=== PATIENT | male | born 1960 | race Caucasian/White ===

== ENCOUNTER 2022-12-21 17:46 | Observation (INO) | payer BC ==
[~2022-12-21] VITALS: Ht 180.3 cm; Wt 68.0 kg
[2022-12-21] MEDS ORDERED: ASPIRIN 81 MG CHEW TAB PO ONE (18:15)
[2022-12-21] MEDS ORDERED: METOPROLOL TARTRATE INJ 1 MG/ML VIAL IV ONE (18:15)
[2022-12-21] MEDS ORDERED: NITROGLYCERIN 2% OINT 1 GM PKT TOP ONE (18:15)
[2022-12-21 18:22] LABS: BASOPHILS # (AUTO) 0.1 (0.0-0.1); BASOPHILS % 0.7 % (0.0-1.0); HEMATOCRIT 38.4 % (38.2-49.6); LYMPHOCYTES # (AUTO) 1.4 (1.0-3.2); LYMPHOCYTES % 20.1 % (18.0-39.1); MEAN CORPUSCULAR HEMOGLOBIN 33.7 pg (28-32); MEAN CORPUSCULAR HGB CONC 33.9 g/dL (31-35); MEAN CORPUSCULAR VOLUME 99.5 fL (81-99); MONOCYTES # (AUTO) 0.6 (0.2-0.8); MONOCYTES % 8.9 % (4.4-11.3); NEUTROPHILS % 69.9 % (38.7-80.0); PLATELET COUNT 198 x10e3/uL (140-360); RED BLOOD COUNT 3.86 x10e6/uL (4.3-5.7); RED CELL DISTRIBUTION WIDTH 12.5 % (11.7-14.4)
[2022-12-21] MEDS ORDERED: ASPIRIN 81 MG CHEW TAB ONE (18:27)
[2022-12-21] MEDS ORDERED: METOPROLOL TARTRATE INJ 1 MG/ML VIAL ONE (18:27)
[2022-12-21 18:35] LABS: ALBUMIN 4.3 g/dL (3.5-5.0); ALBUMIN/GLOBULIN RATIO 1.5 (0.8-2.0); ANION GAP 17.9 mmol/L (8-16); CALCIUM 8.5 mg/dL (8.4-10.2); CREATININE, SERUM 0.72 mg/dL (0.72-1.25); POTASSIUM 3.9 mmol/L (3.5-5.1)
[2022-12-21] MEDS ORDERED: ONDANSETRON HCL INJ 2MG/ML 2ML 2 MG/ML VIAL IV PRN ×2 (19:00→21:15)
[2022-12-21] MEDS ORDERED: SODIUM CHLORIDE FLUSH 10 ML SYR INJ PRN (19:00)
[2022-12-21] MEDS ORDERED: HYDRALAZINE HCL 20 MG/ML VIAL IV PRN ×2 (19:15→21:15)
[2022-12-21] MEDS: METOPROLOL TARTRATE 25 MG TAB PO SCH (19:40)
[2022-12-21] MEDS ORDERED: METOPROLOL TARTRATE 25 MG TAB ONE (19:44)
[2022-12-21] MEDS ORDERED: HYDRALAZINE HCL 20 MG/ML VIAL ONE (19:44)
[2022-12-21 20:17] VITALS: BP 125/82
[2022-12-21] MEDS ORDERED: CLONIDINE HCL0.1 MG (20:17)
[2022-12-21] MEDS ORDERED: PAROXETINE HCL20 MG (20:17)
[2022-12-21 20:59] VITALS: BP 125/82
[2022-12-21] MEDS: HYDROCODONE/APAP 5MG-325MG TAB PO PRN (21:02)
[2022-12-21] MEDS ORDERED: LIDOCAINE 4% PATCH TP PRN (21:15)
[2022-12-21] MEDS ORDERED: NITROGLYCERIN 0.4 MG SUBL SL PRN (21:15)
[2022-12-21] MEDS ORDERED: MELATONIN 5 MG TABLET PO PRN (21:15)
[2022-12-21] MEDS ORDERED: ALBUTEROL/IPRATROPIUM 3 ML NEB NEB PRN (21:15)
[2022-12-21] MEDS ORDERED: ACETAMINOPHEN 325 MG TAB PO PRN (21:15)
[2022-12-21] MEDS ORDERED: POTASSIUM CHLORIDE 20 MEQ TAB CR PO PRN (21:15)
[2022-12-21] MEDS ORDERED: BENZONATATE 100 MG CAP PO PRN (21:15)
[2022-12-21] MEDS ORDERED: DOCUSATE SODIUM 100 MG CAP PO PRN (21:15)
[2022-12-21] MEDS ORDERED: DIPHENHYDRAMINE HCL 25 MG CAP PO PRN (21:15)
[2022-12-21] MEDS ORDERED: SIMETHICONE 80 MG CHEW PO PRN (21:15)
[2022-12-21] MEDS ORDERED: DEXTROSE 50% SYRINGE 50 ML IV PRN (21:15)
[2022-12-21 21:40] LABS: CREATINE KINASE MB 1.5 ng/mL (0-5.0)
[2022-12-22] MEDS ORDERED: NITROGLYCERIN 2% OINT 1 GM PKT TOP SCH
[2022-12-22 01:22] VITALS: BP 131/87
[2022-12-22] MEDS: SUCRALFATE 1 GM/10 ML SUSP NG SCH ×3 (04:38→11:19)
[2022-12-22] MEDS: PANTOPRAZOLE SOD 40 MG TABEC PO SCH ×2 (04:38→08:37)
[2022-12-22] MEDS: HYDROCODONE/APAP 5MG-325MG TAB PO PRN ×2 (04:42→11:20)
[2022-12-22 06:24] LABS: ANION GAP 15.8 mmol/L (8-16); CALCIUM 8.1 mg/dL (8.4-10.2); CHOL/HDL RATIO 2.8 (3.9-4.7); CREATININE, SERUM 0.66 mg/dL (0.72-1.25); POTASSIUM 3.8 mmol/L (3.5-5.1)
[2022-12-22 06:35] VITALS: BP 137/95
[2022-12-22 06:39] LABS: THYROID STIMULATING HORMONE 1.152 uIU/mL (0.350-4.940)
[2022-12-22 06:42] LABS: CREATINE KINASE MB 1.3 ng/mL (0-5.0)
[2022-12-22 07:05] LABS: BASOPHILS # (AUTO) 0.1 (0.0-0.1); BASOPHILS % 0.8 % (0.0-1.0); HEMATOCRIT 36.7 % (38.2-49.6); HEMOGLOBIN 12.3 g/dL (14.0-18.0); LYMPHOCYTES # (AUTO) 1.3 (1.0-3.2); LYMPHOCYTES % 19.9 % (18.0-39.1); MEAN CORPUSCULAR HEMOGLOBIN 33.8 pg (28-32); MEAN CORPUSCULAR HGB CONC 33.5 g/dL (31-35); MEAN CORPUSCULAR VOLUME 100.8 fL (81-99); MONOCYTES # (AUTO) 0.8 (0.2-0.8); MONOCYTES % 12.6 % (4.4-11.3); NEUTROPHILS # (AUTO) 4.3 (2.1-6.9); NEUTROPHILS % 66.4 % (38.7-80.0); PLATELET COUNT 198 x10e3/uL (140-360); RED BLOOD COUNT 3.64 x10e6/uL (4.3-5.7); RED CELL DISTRIBUTION WIDTH 12.5 % (11.7-14.4)
[2022-12-22 08:20] VITALS: BP 141/83
[2022-12-22] MEDS: METOPROLOL TARTRATE 25 MG TAB PO SCH (08:36)
[2022-12-22] MEDS ORDERED: ASPIRIN 325 MG TAB EC PO SCH (09:00)
[2022-12-22] MEDS ORDERED: PAROXETINE HCL 20 MG TAB PO SCH (09:00)
[2022-12-22] MEDS ORDERED: NICOTINE 21 MG/EA PATCH TOP SCH (09:00)
[2022-12-22] MEDS ORDERED: ASPIRIN 81 MG ENTERIC COATED PO SCH (09:00)
[2022-12-22] MEDS ORDERED: LOSARTAN POTASSIUM 100 MG TAB PO SCH (09:00)
[2022-12-22 10:02] VITALS: BP 141/83
[2022-12-22 12:00] VITALS: BP 129/88
[2022-12-22] MEDS ORDERED: COZAAR100 MG PO (14:48)
[2022-12-22] MEDS ORDERED: LOPRESSOR25 MG PO (14:48)
[2022-12-22] MEDS ORDERED: LIPITOR20 MG PO (14:48)
[2022-12-22] MEDS ORDERED: NICODERM CQ1 EAC2 TOP (14:48)
[2022-12-22] MEDS ORDERED: ASPIRIN EC81 MG PO (14:48)
[2022-12-22] MEDS ORDERED: ENOXAPARIN SOD INJ 40 MG/0.4 ML SYR SC SCH (17:00)
[2022-12-22] MEDS ORDERED: ATORVASTATIN 40 MG TAB PO SCH (21:00)
== END 2022-12-22 16:33 | disposition home or self-care (01) ==
LOC: ER 17:49 → ERHOLD 18:58 → MED/SURG2 20:01
PROVIDERS: ADMIT Internal Medicine; ATTEND Internal Medicine
DX: I16.0 Hypertensive urgency (principal); R07.89 Other chest pain; F41.9 Anxiety disorder, unspecified; Z20.822 Contact with and (suspected) exposure to COVID-19; E78.5 Hyperlipidemia, unspecified; Z79.899 Other long term (current) drug therapy
CPT/HCPCS: 0223U; 36415 ×2; 70450; 71045; 80048; 80053; 80061; 82550 ×2; 82553 ×2; 83036; 83735; 83880; 84443; 84484 ×2; 85025 ×2; 93005; 93306; 94799 ×2; 99284; G0378 ×2; J0360; J2405; S0164